=== PATIENT | female | born 1930 | race Caucasian/White ===

== ENCOUNTER 2019-10-29 16:59 | Inpatient (IN) | payer MEDICAID, OTHER ==
[~2019-10-29] VITALS: Ht 123.8 cm; Wt 44.9 kg
[2019-10-29 17:55] LABS: BASOPHILS % 0.6 % (0.0-2.0); EOSINOPHILS % 0.8 % (0.0-5.0); HEMATOCRIT. 31.4 % (36.0-48.0); HEMOGLOBIN. 10.4 g/dL (12.0-16.0); LYMPHOCYTES % 54.6 % (20.0-50.0); MEAN CORPUSCULAR HEMOGLOBIN 30.1 pg (28.0-32.0); MEAN CORPUSCULAR VOLUME 90.8 fL (81.0-99.0); MEAN PLATELET VOLUME 10.1 fl (7.4-10.4); PLATELET 131 x1000/uL (130-400); RED BLOOD CELL COUNT 3.46 mill/uL (4.2-5.4)
[2019-10-29] MEDS ORDERED: ONDANSETRON HCL 4MG/2ML INJ IV ONE (18:00)
[2019-10-29] MEDS ORDERED: MORPHINE SULFATE 4 MG/ML CPJ (NOT FOR IM USE) IV ONE (18:00)
[2019-10-29 18:01] LABS: CHLORIDE 112 mEq/L (98-107)
[2019-10-29 18:04] LABS: PROTHROMBIN TIME 10.5 sec (9.6-11.0)
[2019-10-29] MEDS: MORPHINE SULFATE 2 MG/ML CPJ (NOT FOR IM USE) IV PRN ×2 (21:06→22:09)
[2019-10-29] MEDS ORDERED: HYDROCODONE/ACETAMINOPHEN 10/325MG TABLET PO PRN (22:15)
[2019-10-29] MEDS ORDERED: ACETAMINOPHEN 325MG TABLET PO PRN (22:15)
[2019-10-29] MEDS ORDERED: ENOXAPARIN 30MG/0.3ML SYR SUBCUT SCH (23:00)
[2019-10-30 00:30] VITALS: BP 138/73
[2019-10-30] MEDS: MORPHINE SULFATE 2 MG/ML CPJ (NOT FOR IM USE) IV PRN (01:40)
[2019-10-30 04:00] VITALS: BP 108/49
[2019-10-30 08:00] VITALS: BP 126/51
[2019-10-30 12:00] VITALS: BP 119/51
[2019-10-30 16:00] VITALS: BP 126/56
[2019-10-30] MEDS ORDERED: BUPIVACAINE HCL 0.5% (5MG/ML) 50ML ONE (16:56)
[2019-10-30] MEDS ORDERED: BACITRACIN 50,000 UNITS/VIAL ONE (16:56)
[2019-10-30] MEDS ORDERED: LIDOCAINE HCL 1% 20ML VIAL (Pyxis) INJ ONE (16:56)
[2019-10-30] MEDS ORDERED: MIDAZOLAM HCL 2 MG/2 ML VIAL ONE (17:10)
[2019-10-30] MEDS ORDERED: ROCURONIUM BROMIDE 10MG/ML VIAL 5ML IV ONE (17:10)
[2019-10-30] MEDS ORDERED: NEOSTIGMINE METHYLSULFATE 1MG/ML 10 ML VIAL ONE (17:10)
[2019-10-30] MEDS ORDERED: PROPOFOL 200MG/20ML VIAL IV ONE (17:10)
[2019-10-30] MEDS ORDERED: FENTANYL CITRATE/PF 50MCG/ML 2ML VIAL ONE (17:10)
[2019-10-30] MEDS ORDERED: GLYCOPYRROLATE 0.2 MG/ML 2ML VIAL ONE (17:11)
[2019-10-30] MEDS ORDERED: ONDANSETRON HCL 4MG/2ML INJ IV PRN ×2 (17:15→17:45)
[2019-10-30] MEDS ORDERED: HYDROCODONE/ACETAMINOPHEN 5/325MG TABLET PO PRN (17:15)
[2019-10-30] MEDS ORDERED: BUPIVACAINE HCL/EPINEPHRINE/PF 0.5%/0.0005 10ML ONE (17:31)
[2019-10-30] MEDS ORDERED: VANCOMYCIN HCL 1 GM/VIAL ONE (17:31)
[2019-10-30] MEDS ORDERED: ONDANSETRON HCL 4MG/2ML INJ ONE (17:35)
[2019-10-30] MEDS ORDERED: DEXAMETHASONE 4MG/ML 1ML VIAL ONE (17:35)
[2019-10-30] MEDS ORDERED: MEPERIDINE HCL/PF 25MG/ML CPJ IV PRN (17:45)
[2019-10-30] MEDS ORDERED: HYDROMORPHONE HCL/PF 2MG/ML CPJ IV PRN (17:45)
[2019-10-30] MEDS ORDERED: LABETALOL 5MG/ML SYR 20 MG/4 ML SYRINGE IV PRN (17:45)
[2019-10-30] MEDS: CEFAZOLIN 1000MG PREMIX 50 ML IV SCH (23:29)
[2019-10-31] VITALS: BP 107/49
[2019-10-31 04:00] VITALS: BP 115/37
[2019-10-31] MEDS: HYDROCODONE/ACETAMINOPHEN 5/325MG TABLET PO PRN ×3 (05:24→18:39)
[2019-10-31 07:11] LABS: BASOPHILS % 0.2 % (0.0-2.0); HEMATOCRIT. 27.5 % (36.0-48.0); HEMOGLOBIN. 9.3 g/dL (12.0-16.0); LYMPHOCYTES % 10.5 % (20.0-50.0); MEAN CORPUSCULAR HEMOGLOBIN 30.5 pg (28.0-32.0); MEAN CORPUSCULAR VOLUME 90.3 fL (81.0-99.0); MEAN PLATELET VOLUME 9.7 fl (7.4-10.4); MONOCYTES % 6.1 % (2.0-8.0); NEUTROPHILS % 83.2 % (40.0-76.0); PLATELET 108 x1000/uL (130-400); RED BLOOD CELL COUNT 3.04 mill/uL (4.2-5.4); RED CELL DISTRIBUTION WIDTH 14.5 % (11.6-14.6)
[2019-10-31 08:00] VITALS: BP 102/44
[2019-10-31] MEDS: CEFAZOLIN 1000MG PREMIX 50 ML IV SCH ×3 (08:53→22:35)
[2019-10-31] MEDS ORDERED: ENOXAPARIN 40MG/0.4ML SYR SUBCUT SCH (09:00)
[2019-10-31] MEDS ORDERED: ENOXAPARIN 30MG/0.3ML SYR SUBCUT SCH (09:00)
[2019-10-31 12:00] VITALS: BP 109/45
[2019-10-31] MEDS: ENOXAPARIN 30MG/0.3ML SYR SUBCUT SCH (15:44)
[2019-10-31 16:00] VITALS: BP 103/44
[2019-10-31 20:00] VITALS: BP 111/46
[2019-11-01] VITALS: BP 110/51
[2019-11-01 04:00] VITALS: BP 120/48
[2019-11-01 08:00] VITALS: BP_SYST 128; BP_SYST 92; BP_DIAS 48
[2019-11-01 10:40] LABS: BASOPHILS % 0.2 % (0.0-2.0); EOSINOPHILS % 0.3 % (0.0-5.0); HEMATOCRIT. 24.9 % (36.0-48.0); HEMOGLOBIN. 8.5 g/dL (12.0-16.0); LYMPHOCYTES % 18.3 % (20.0-50.0); MEAN CORPUSCULAR HEMOGLOBIN 30.3 pg (28.0-32.0); MEAN CORPUSCULAR VOLUME 89.2 fL (81.0-99.0); MEAN PLATELET VOLUME 9.7 fl (7.4-10.4); MONOCYTES % 8.4 % (2.0-8.0); NEUTROPHILS % 72.8 % (40.0-76.0); PLATELET 123 x1000/uL (130-400); RED BLOOD CELL COUNT 2.79 mill/uL (4.2-5.4); RED CELL DISTRIBUTION WIDTH 14.5 % (11.6-14.6)
[2019-11-01 10:52] LABS: CHLORIDE 103 mEq/L (98-107)
[2019-11-01] MEDS: HYDROMORPHONE HCL/PF 2MG/ML CPJ IV PRN (11:00)
[2019-11-01 12:00] VITALS: BP 93/47
[2019-11-01] MEDS ORDERED: HYDR-4009 MT (12:11)
[2019-11-01] MEDS ORDERED: DOCU250C14 MT (12:12)
[2019-11-01] MEDS: SODIUM CHLORIDE 0.9% 1,000 ML IV SCH (13:35)
[2019-11-01] MEDS: HYDROCODONE/ACETAMINOPHEN 5/325MG TABLET PO PRN (13:45)
[2019-11-01] MEDS: ONDANSETRON HCL 4MG/2ML INJ IV PRN (14:17)
[2019-11-01 14:19] LABS: TOTAL IRON BINDING CAPACITY 294 ug/dL (250-450)
[2019-11-01 16:00] VITALS: BP 105/51
[2019-11-01] MEDS: ENOXAPARIN 30MG/0.3ML SYR SUBCUT SCH (17:09)
[2019-11-01 20:00] VITALS: BP 118/55
[2019-11-02] VITALS: BP 113/49
[2019-11-02 04:00] VITALS: BP 112/49
[2019-11-02 06:56] LABS: BASOPHILS % 0.4 % (0.0-2.0); EOSINOPHILS % 0.6 % (0.0-5.0); HEMATOCRIT. 24.6 % (36.0-48.0); HEMOGLOBIN. 8.3 g/dL (12.0-16.0); LYMPHOCYTES % 22.5 % (20.0-50.0); MEAN CORPUSCULAR HEMOGLOBIN 30.3 pg (28.0-32.0); MEAN CORPUSCULAR VOLUME 89.5 fL (81.0-99.0); MEAN PLATELET VOLUME 9.3 fl (7.4-10.4); MONOCYTES % 8.4 % (2.0-8.0); NEUTROPHILS % 68.1 % (40.0-76.0); PLATELET 131 x1000/uL (130-400); RED BLOOD CELL COUNT 2.75 mill/uL (4.2-5.4); RED CELL DISTRIBUTION WIDTH 14.5 % (11.6-14.6)
[2019-11-02 07:27] LABS: CHLORIDE 105 mEq/L (98-107)
[2019-11-02 08:00] VITALS: BP 104/41
[2019-11-02] MEDS: SODIUM CHLORIDE 0.9% 1,000 ML IV SCH (08:17)
[2019-11-02] MEDS: HYDROMORPHONE HCL/PF 2MG/ML CPJ IV PRN (10:21)
[2019-11-02] MEDS: ONDANSETRON HCL 4MG/2ML INJ IV PRN (11:17)
[2019-11-02 12:00] VITALS: BP 143/50
[2019-11-02] MEDS: ENOXAPARIN 30MG/0.3ML SYR SUBCUT SCH (14:51)
[2019-11-02] MEDS: HYDROCODONE/ACETAMINOPHEN 5/325MG TABLET PO PRN ×2 (14:51→23:39)
[2019-11-02 16:00] VITALS: BP 110/53
[2019-11-02] MEDS ORDERED: SODIUM CHLORIDE 0.9% IV SCH (16:00)
[2019-11-02] MEDS ORDERED: IRON SUCROSE COMPLEX IV SCH (16:00)
[2019-11-02 20:00] VITALS: BP 120/48
[2019-11-03] VITALS: BP 112/52
[2019-11-03] MEDS: HYDROMORPHONE HCL/PF 2MG/ML CPJ IV PRN (00:59)
[2019-11-03 04:00] VITALS: BP 122/53
[2019-11-03 05:48] LABS: CHLORIDE 108 mEq/L (98-107)
[2019-11-03 06:39] LABS: BASOPHILS % 0.3 % (0.0-2.0); EOSINOPHILS % 1.3 % (0.0-5.0); HEMATOCRIT. 23.1 % (36.0-48.0); HEMOGLOBIN. 7.8 g/dL (12.0-16.0); LYMPHOCYTES % 27.5 % (20.0-50.0); MEAN CORPUSCULAR HEMOGLOBIN 30.4 pg (28.0-32.0); MEAN PLATELET VOLUME 9.2 fl (7.4-10.4); MONOCYTES % 7.9 % (2.0-8.0); PLATELET 151 x1000/uL (130-400); RED BLOOD CELL COUNT 2.57 mill/uL (4.2-5.4); RED CELL DISTRIBUTION WIDTH 14.5 % (11.6-14.6)
[2019-11-03 08:00] VITALS: BP 117/50
[2019-11-03] MEDS: HYDROCODONE/ACETAMINOPHEN 5/325MG TABLET PO PRN ×3 (09:15→21:08)
[2019-11-03] MEDS: ONDANSETRON HCL 4MG/2ML INJ IV PRN (10:12)
[2019-11-03 12:00] VITALS: BP 118/67
[2019-11-03] MEDS: ENOXAPARIN 30MG/0.3ML SYR SUBCUT SCH (14:04)
[2019-11-03 16:00] VITALS: BP 112/50
[2019-11-03] MEDS: IRON SUCROSE COMPLEX 100 MG/5 ML ML IV SCH (16:29)
[2019-11-03] MEDS ORDERED: FERR325T6 MT (16:46)
[2019-11-03] MEDS ORDERED: APIX2.5T MT (16:48)
[2019-11-03 20:00] VITALS: BP 104/49
[2019-11-04] VITALS: BP 107/41
[2019-11-04 01:19] LABS: HEMATOCRIT 25.8 % (36.0-48.0); HEMOGLOBIN 8.6 g/dL (12.0-16.0)
[2019-11-04 01:47] LABS: PROTHROMBIN TIME 10.2 sec (9.6-11.0)
[2019-11-04] MEDS: HYDROMORPHONE HCL/PF 2MG/ML CPJ IV PRN (02:01)
[2019-11-04 04:00] VITALS: BP 119/42
[2019-11-04 08:00] VITALS: BP 119/51
[2019-11-04] MEDS: HYDROCODONE/ACETAMINOPHEN 5/325MG TABLET PO PRN ×2 (11:49→18:59)
[2019-11-04 12:00] VITALS: BP 94/50
[2019-11-04 16:00] VITALS: BP 111/55
[2019-11-04] MEDS: IRON SUCROSE COMPLEX 100 MG/5 ML ML IV SCH (16:40)
[2019-11-04] MEDS ORDERED: HYDROMORPHONE HCL/PF 2MG/ML CPJ IV PRN (19:00)
[2019-11-04] MEDS ORDERED: HYDROCODONE/ACETAMINOPHEN 5/325MG TABLET PO PRN (19:00)
[2019-11-04 20:00] VITALS: BP 117/49
[2019-11-04] MEDS: SODIUM CHLORIDE 0.9% 1,000 ML IV SCH (20:40)
[2019-11-05] VITALS (8 sets, daily range): BP systolic 97–135; BP diastolic 48–54
[2019-11-05] MEDS: HYDROCODONE/ACETAMINOPHEN 5/325MG TABLET PO PRN ×3 (00:44→20:33)
== END 2019-11-05 20:45 | disposition short-term general hospital (02) | DRG 301 ==
LOC: ER 16:59 → EDBEDREQ 19:07 → CANBEDREQ 19:08 → MICUSO 19:50 → 6EST 23:01
PROVIDERS: ADMIT Internal Medicine; ATTEND Internal Medicine
PROC: 0SRS0JZ Replacement of Left Hip Joint, Femoral Surface with Synthetic Substitute, Open Approach (ICD-10-PCS; principal; 2019-10-30)
DX: S72.001A Fracture of unspecified part of neck of right femur, initial encounter for closed fracture (principal); E87.8 Other disorders of electrolyte and fluid balance, not elsewhere classified; E44.1 Mild protein-calorie malnutrition; W18.39XA Other fall on same level, initial encounter; R26.9 Unspecified abnormalities of gait and mobility; D50.9 Iron deficiency anemia, unspecified; G90.8 Other disorders of autonomic nervous system; E87.1 Hypo-osmolality and hyponatremia; I95.9 Hypotension, unspecified; Z20.828 Contact with and (suspected) exposure to other viral communicable diseases; Z85.028 Personal history of other malignant neoplasm of stomach; Z68.29 Body mass index [BMI] 29.0-29.9, adult; Y93.89 Activity, other specified; Y92.89 Other specified places as the place of occurrence of the external cause; Y99.8 Other external cause status; Z92.21 Personal history of antineoplastic chemotherapy; Z82.49 Family history of ischemic heart disease and other diseases of the circulatory system
CPT/HCPCS: 36415; 71045; 72170; 73130; 73502; 80048; 80053; 82728; 83540; 83550; 85014; 85018; 85025; 85049; 85379; 85384; 86850; 86900; 86920; 88305; 88311; 92610; 93005; 93306; 93970; 96374; 97110; 97116; 97162; 97166; 97530; 97535; 99285; C1776; J0171; J0690; J1100; J1170; J1650; J2250; J2270; J2405; J2704; J2710; J3010; J3370; J3490; J7030; J7050; U0003-CS